=== PATIENT | male | born 1975 | race Caucasian/White ===

== ENCOUNTER 2018-06-16 06:09 | Day surgery (SDC) | payer BC ==
[~2018-06-16] VITALS: Ht 177.8 cm; Wt 115.8 kg
[~2018-06-16 06:09] MED LIST: ALBU90OI; AMLO5; GABA600; LOSARTAN-HCTZ1 EAC2; NAPR500ERA; Norco 5-325 Ta1 EACH PO; Prilosec Otc20 MG PO; Pseudoephedrine30 MG; SILD25T; Ventolin5 MG/1 ML
== END 2018-06-16 15:09 | disposition home or self-care (01) ==
LOC: ORSCSDS 06:09
PROVIDERS: Orthopaedic Surgery
PROC: 0RNK4ZZ Release Left Shoulder Joint, Percutaneous Endoscopic Approach (ICD-10-PCS; principal; 2018-06-16 07:30)
PROC: 0LQ24ZZ Repair Left Shoulder Tendon, Percutaneous Endoscopic Approach (ICD-10-PCS; principal; 2018-06-16 07:30)
PROC: 0LS24ZZ Reposition Left Shoulder Tendon, Percutaneous Endoscopic Approach (ICD-10-PCS; principal; 2018-06-16 07:30)
DX: M75.122 Complete rotator cuff tear or rupture of left shoulder, not specified as traumatic (principal); M75.42 Impingement syndrome of left shoulder; S46.212A Strain of muscle, fascia and tendon of other parts of biceps, left arm, initial encounter; I10 Essential (primary) hypertension; E66.01 Morbid (severe) obesity due to excess calories; Z68.36 Body mass index [BMI] 36.0-36.9, adult; Z79.899 Other long term (current) drug therapy
CPT/HCPCS: C1713; J0171; J0690; J2060; J2250; J3010; J7040; J7120

== ENCOUNTER 2019-06-17 08:00 | Day surgery (SDC) | payer BC ==
[~2019-06-17] VITALS: Ht 177.8 cm; Wt 109.5 kg
[~2019-06-17 08:00] MED LIST changes: -ALBU90OI; +ALBU90OI INH; -AMLO5; +AMLO5 PO; -LOSARTAN-HCTZ1 EAC2; +LOSARTAN-HCTZ1 EAC2 PO; +Loratadine10 MG PO; +MOME220I INH; +PSEU120ER PO; -SILD25T; +SILD25T PO
[2019-06-17] MEDS ORDERED: OMEPRAZOLE20 MG PO (08:19)
--- NOTE | 2019-06-17 08:29 | NUR ---
History, Chart, Medications and Allergies reviewed before start of procedure. Lungs clear T/O to Auscultation. Patient confirms HE TOOK A FEW SIPS OF WATER THIS MORNING ABOUT 0630. DR. TERAN NOTIFIED AND AGREES WITH SCHEDULED SURGERY. Pre-Op teaching done. Pt verbalizes understanding. Patient reports completing Chlorhexadine shower X2 prior to admission to hospital.
--- NOTE | 2019-06-17 09:10 | NUR ---
Ambulatory in Day Surgery. Surgical site prepped with 2% Chlorhexidine cloth wipe. History, Chart, Medications and Allergies reviewed before start of procedure.Lungs clear T/O to Auscultation. Pre-Op teaching done. Pt verbalizes understanding. Patient confirms NPO status and agrees with scheduled surgery. Patient reports completing Chlorhexadine shower X2 prior to admission to hospital.
--- NOTE | 2019-06-17 11:50 | NUR ---
1120 Patient up to Ambulate independently. Gait steady. Dressing to procedure site clean, dry, intact with no visible drainage, swelling, erythema or bruising noted. Discharge instructions reviewed with patient. Patient verbalizes understanding. Copy given to patient to take home. Patient States Post-Procedure ride home has been arranged. Discharged via wheelchair to private car for ride home. ALL BELONINGS RETUNRED TO PATIENT.
== END 2019-06-17 23:54 | disposition home or self-care (01) ==
LOC: ORSCMMR 08:00 → ORD 09:30 → ORSCMMR 09:30
PROVIDERS: Surgery
PROC: 0JBD0ZZ Excision of Right Upper Arm Subcutaneous Tissue and Fascia, Open Approach (ICD-10-PCS; principal; 2019-06-17 09:30)
DX: D17.9 Benign lipomatous neoplasm, unspecified (principal); I10 Essential (primary) hypertension; K21.9 Gastro-esophageal reflux disease without esophagitis; J45.909 Unspecified asthma, uncomplicated; E66.9 Obesity, unspecified; Z68.34 Body mass index [BMI] 34.0-34.9, adult; Z79.899 Other long term (current) drug therapy
CPT/HCPCS: 88304; J0690; J1100; J1885; J2250; J2405; J2704; J3010; J7120

== ENCOUNTER 2020-12-24 12:24 | Day surgery (SDC) | payer OTHER ==
[~2020-12-24] VITALS: Ht 177.8 cm; Wt 106.4 kg
[~2020-12-24 12:24] MED LIST changes: +FERSU300; +HYDCHL25; +LOSARTAN POTAS100 M1; +MULVITA; +OMEPRAZOLE20 MG PO
== END 2020-12-24 14:49 | disposition home or self-care (01) ==
LOC: ORSCSDS 12:24
PROVIDERS: Internal Medicine Gastroenterology
PROC: 0DB58ZX Excision of Esophagus, Via Natural or Artificial Opening Endoscopic, Diagnostic (ICD-10-PCS; principal; 2020-12-24 13:45)
PROC: 0DBM8ZX Excision of Descending Colon, Via Natural or Artificial Opening Endoscopic, Diagnostic (ICD-10-PCS; principal; 2020-12-24 13:45)
DX: K22.70 Barrett's esophagus without dysplasia (principal); D50.9 Iron deficiency anemia, unspecified; D12.4 Benign neoplasm of descending colon; Z83.71 Family history of colonic polyps; K57.30 Diverticulosis of large intestine without perforation or abscess without bleeding; K64.8 Other hemorrhoids; I10 Essential (primary) hypertension; J45.909 Unspecified asthma, uncomplicated; K44.9 Diaphragmatic hernia without obstruction or gangrene; E66.9 Obesity, unspecified; Z68.34 Body mass index [BMI] 34.0-34.9, adult; Z79.899 Other long term (current) drug therapy
CPT/HCPCS: 88305; J2250; J2704